=== PATIENT | male | born 2000 | race Hispanic/Latino ===

== ENCOUNTER 2022-07-16 13:55 | Emergency (ER) | payer SELFPAY ==
[~2022-07-16] VITALS: Ht 157.5 cm; Wt 65.0 kg
[2022-07-16 14:02] VITALS: BP 135/86
[2022-07-16 14:30] VITALS: BP 129/86
[2022-07-16 15:00] VITALS: BP 131/85
[2022-07-16] MEDS ORDERED: NAPROXEN500 MG PO (15:10)
[2022-07-16] MEDS ORDERED: FLEXERIL5 M1 PO (15:10)
[2022-07-16 15:30] VITALS: BP 122/85
== END 2022-07-16 15:50 | disposition home or self-care (01) | DRG 206 ==
LOC: ED 13:55
DX: M94.0 Chondrocostal junction syndrome [Tietze] (principal)

== ENCOUNTER 2022-08-09 17:04 | Emergency (ER) | payer SELFPAY ==
[~2022-08-09] VITALS: Ht 157.5 cm; Wt 68.1 kg
[~2022-08-09 17:04] MED LIST: FLEXERIL5 M1 PO; NAPROXEN500 MG PO
[2022-08-09 18:22] LABS: HEMATOCRIT 48.1 % (39.0-50.0); HEMOGLOBIN 16.8 g/dl (14.0-18.0); IMMATURE GRANULOCYTES 0.1 % (0.0-5.0); MEAN CELL VOLUME 91.3 fL CALC (80.0-100.0); MEAN CORPUSCULAR HGB 31.9 pG CALC (26.0-32.0); MEAN CORPUSCULAR HGB CONC 34.9 g/dL CAL (32.0-36.0); NEUT# 6.44 thou/uL (1.82-7.42); RED BLOOD COUNT 5.27 mill/uL (4.70-6.10)
[2022-08-09 18:50] LABS: ALBUMIN 5.5 g/dL (3.2-5.0); ALKALINE PHOSPHATASE 89 u/l (38-126); ANION GAP 17 (6-22 (CALC)); BILIRUBIN, TOTAL 0.6 mg/dL (0.0-1.4); BUN 10 mg/dL (9-20); BUN/CREATININE RATIO 13 (12-20 (CALC)); CARBON DIOXIDE 27 mmol/l (22-30); CHLORIDE 104 mmol/l (95-108); CREATININE 0.8 mg/dL (0.7-1.3); GFR FOR AFR.AMER. > 60 ML/MIN (>=60 (CALC)); GFR OTHER RACES > 60 ML/MIN (>=60 (CALC)); LIPASE 95 u/l (23-300); POTASSIUM 4.1 mmol/l (3.5-5.1); SGOT/AST 43 u/l (17-59); SODIUM 144 mmol/l (137-146); TOTAL PROTEIN 8.2 g/dL (6.3-8.2)
[2022-08-09] MEDS ORDERED: TRAZODONE100 MG PO (18:50)
[2022-08-09 19:19] VITALS: BP 134/95
== END 2022-08-09 19:19 | disposition home or self-care (01) | DRG 887 ==
LOC: ED 17:04
PROVIDERS: Family Medicine
DX: G47.00 Insomnia, unspecified (principal)